=== PATIENT | female | born 1975 ===

== ENCOUNTER → 2019-05-26 | Emergency (ER) | payer OTHER ==
[~2019-05-26] VITALS: Ht 167.6 cm; Wt 86.2 kg
[~2019-05-26] MED LIST: KETO10TA2 PO
== END | disposition home or self-care (01) ==
LOC: ER 22:59
DX: S83.91XA Sprain of unspecified site of right knee, initial encounter (principal); S93.401A Sprain of unspecified ligament of right ankle, initial encounter; X50.9XXA Other and unspecified overexertion or strenuous movements or postures, initial encounter; Y93.89 Activity, other specified; Y92.89 Other specified places as the place of occurrence of the external cause; Y99.8 Other external cause status